=== PATIENT | male | born 1945 | race Caucasian/White ===

== ENCOUNTER → 2016-05-16 | Outpatient (CLI) | payer MEDICARE | LOC: RT 09:46 | PROVIDERS: ATTEND Family Medicine | DX: I49.8 Other specified cardiac arrhythmias (principal); E78.2 Mixed hyperlipidemia; E13.65 Other specified diabetes mellitus with hyperglycemia; N41.9 Inflammatory disease of prostate, unspecified; N41.0 Acute prostatitis; B95.2 Enterococcus as the cause of diseases classified elsewhere; E03.4 Atrophy of thyroid (acquired) | CPT/HCPCS: 36415; 80061; 83036; 84153; 84436; 84443; 86803; 93005 ==